=== PATIENT | female | born 1965 | race Caucasian/White ===

== ENCOUNTER 2024-02-17 06:34 | Day surgery (SDC) | payer MEDICAID ==
[~2024-02-17] VITALS: Ht 160 cm; Wt 75.3 kg
[2024-02-17] VITALS (11 sets, daily range): BP systolic 104–138; BP diastolic 51–87; PULSE 89–105; RESP 16; TEMP 98.6; O2SAT 97–100
[~2024-02-17 06:34] MED LIST: ASPI-611 PO; ERGO125013 PO; FURO-150 PO; OMEP20CA16 PO; SPIR25TA5 PO; VITA800012 PO
[2024-02-17] MEDS ORDERED: FURO-149 PO (07:05)
[2024-02-17] MEDS ORDERED: FURO-150 PO (07:05)
[2024-02-17] MEDS ORDERED: SPIR25TA5 PO ×2 (07:05)
[2024-02-17] MEDS ORDERED: COD1CAPS16 PO (07:05)
[2024-02-17] MEDS ORDERED: ACET325C6 PO (07:06)
[2024-02-17] MEDS: albumin (human) 25% 100 ML IV solution IV PRN (09:43)
== END 2024-02-17 11:30 | disposition home or self-care (01) ==
LOC: SSTAY O 06:34 → MERGE 08:30 → SSTAY O 11:30
PROVIDERS: ATTEND Internal Medicine Critical Care Medicine
DX: K70.31 Alcoholic cirrhosis of liver with ascites (principal); K76.6 Portal hypertension; Z88.1 Allergy status to other antibiotic agents
CPT/HCPCS: 49083; C1729; P9047; 96360; A6258

== ENCOUNTER 2024-02-29 06:29 | Day surgery (SDC) | payer MEDICAID ==
[~2024-02-29] VITALS: Ht 160 cm; Wt 70.3 kg
[2024-02-29] VITALS (8 sets, daily range): BP systolic 119–144; BP diastolic 65–85; PULSE 91–102; RESP 14–16; TEMP 98; O2SAT 96–98
[~2024-02-29 06:29] MED LIST changes: +ACET325C6 PO; -ASPI-611 PO; +COD1CAPS16 PO; +FURO-149 PO
[2024-02-29] MEDS ORDERED: MAGN250T11 PO (06:54)
[2024-02-29] MEDS: albumin 25% 100mL bottle x 1 IV PRN (07:39)
== END 2024-02-29 09:00 | disposition home or self-care (01) ==
LOC: SSTAY O 06:29
PROVIDERS: ATTEND Nurse Practitioner Family
DX: K70.31 Alcoholic cirrhosis of liver with ascites (principal); Z79.899 Other long term (current) drug therapy; Z88.1 Allergy status to other antibiotic agents
CPT/HCPCS: 49083; C1729; P9047; A6258

== ENCOUNTER 2024-03-10 07:01 | Day surgery (SDC) | payer MEDICAID ==
[2024-03-10] VITALS (8 sets, daily range): BP systolic 100–140; BP diastolic 56–74; PULSE 90–109; RESP 16; TEMP 98.2; O2SAT 96–97
[~2024-03-10] VITALS: Ht 160 cm; Wt 78.1 kg
[~2024-03-10 07:01] MED LIST changes: -ACET325C6 PO; -FURO-150 PO; +MAGN250T11 PO
[2024-03-10] MEDS: albumin 25% 100mL bottle x 1 IV PRN (08:03)
== END 2024-03-10 09:45 | disposition home or self-care (01) ==
LOC: SSTAY O 07:01
PROVIDERS: ATTEND Nurse Practitioner Family
DX: K70.31 Alcoholic cirrhosis of liver with ascites (principal); Z79.899 Other long term (current) drug therapy; Z88.1 Allergy status to other antibiotic agents
CPT/HCPCS: 49083; C1729; P9047; A6258

== ENCOUNTER 2024-03-17 08:18 | Day surgery (SDC) | payer MEDICAID ==
[2024-03-17] VITALS (11 sets, daily range): BP systolic 95–151; BP diastolic 58–97; PULSE 91–108; RESP 12–16; TEMP 99.3; O2SAT 97–100
[~2024-03-17] VITALS: Ht 160 cm; Wt 76.5 kg
[2024-03-17] MEDS: albumin 25% 100mL bottle x 1 IV PRN (10:24)
== END 2024-03-17 12:30 | disposition home or self-care (01) ==
LOC: SSTAY O 08:18
PROVIDERS: ATTEND Radiology Vascular & Interventional Radiology
DX: K70.31 Alcoholic cirrhosis of liver with ascites (principal); Z88.1 Allergy status to other antibiotic agents
CPT/HCPCS: 49083; C1729; P9047; 96360; A6258; A6449

== ENCOUNTER 2024-03-24 08:15 | Day surgery (SDC) | payer MEDICAID ==
[2024-03-24] VITALS (8 sets, daily range): BP systolic 119–157; BP diastolic 62–99; PULSE 88–99; RESP 13–15; TEMP 98; O2SAT 95–100
[~2024-03-24] VITALS: Ht 160 cm; Wt 80.9 kg
[~2024-03-24 08:15] MED LIST changes: -ERGO125013 PO
[2024-03-24] MEDS: albumin 25% 100mL bottle x 1 IV PRN (09:39)
== END 2024-03-24 12:05 | disposition home or self-care (01) ==
LOC: SSTAY O 08:15
PROVIDERS: ATTEND Radiology Diagnostic Radiology
DX: K70.31 Alcoholic cirrhosis of liver with ascites (principal); Z88.1 Allergy status to other antibiotic agents
CPT/HCPCS: 49083; C1729; P9047; A6258; A6449

== ENCOUNTER 2024-04-15 07:22 | Day surgery (SDC) | payer MEDICAID ==
[2024-04-08 14:46] LABS: EOSINOPHILS % (AUTO) 0.6 % (0-6); LYMPHOCYTES # (AUTO) 0.3 X10'3 (1.1-4.8); MONOCYTES # (AUTO) 0.4 X10'3 (0-0.9); NEUTROPHILS % (AUTO) 75.3 % (42-75)
[2024-04-08 14:48] LABS: BASOPHILS % (AUTO) 0.5 % (0-1); LYMPHOCYTES % (AUTO) 10.2 % (21-51); MEAN CORPUSCULAR HEMOGLOBIN 31.5 PG (27.0-31.0); MEAN CORPUSCULAR VOLUME 95.5 FL (78-98); MEAN PLATELET VOLUME 8.3 FL (7.4-10.4); MONOCYTES % (AUTO) 13.4 % (2-12); PRE OP HEMOGLOBIN 11.6 g/dL (12.0-16.0); RED BLOOD COUNT 3.67 X10'6 (4.20-5.60); RED CELL DISTRIBUTION WIDTH 16.5 % (11.5-14.5)
[2024-04-08 14:58] LABS: ALBUMIN 3.8 G/DL (3.4-5.0); ALBUMIN/GLOBULIN RATIO 1.3 (1.1-1.5); ALKALINE PHOSPHATASE 122 IU/L (46-116); BLOOD UREA NITROGEN 16 MG/DL (7-18); BUN/CREATININE RATIO 19.5 (10.0-20.0); CALCIUM 8.8 MG/DL (8.5-10.1); CHLORIDE 102 MMOL/L (99-107); CREATININE 0.82 MG/DL (0.40-0.90); PRE OP ALT 34 U/L (30-65); PRE OP ANION GAP 6 (8-16); PRE OP AST 36 U/L (10-37); PRE OP BILIRUB, TOTAL 1.2 MG/DL (0.0-1.0); PRE OP GLUCOSE 101 MG/DL (70-104); PRE OP POTASSIUM 4.2 MMOL/L (3.4-5.1); PRE OP SODIUM 138 MMOL/L (135-145); TOTAL CARBON DIOXIDE 29.6 MMOL/L (24-32); TOTAL PROTEIN 6.8 G/DL (6.4-8.2); eGFR 72 ML/MIN
[2024-04-08 15:21] LABS: PRE OP PLATELET COUNT 66 X10'3 (140-440); PRE OP WHITE BLOOD COUNT 2.7 10'3 (4.8-10.8)
[2024-04-08 15:34] LABS: ANISOCYTOSIS 1+; PLATELET ESTIMATE DECREASED; TOTAL CELLS COUNTED 100
[~2024-04-15] VITALS: Ht 160 cm; Wt 70.1 kg
[~2024-04-15 07:22] MED LIST changes: +CHOL10008 PO; +cefazolin 2gm/D5W 100mL 100 ML IV ONE
[2024-04-15 08:00] VITALS: BP 143/52; PULSE 84; RESP 16; TEMP 98.4; O2SAT 96
[2024-04-15] MEDS ORDERED: LIDOcaine 2% (20mg/ml) 5ml vial ONE (09:12)
[2024-04-15] MEDS ORDERED: BUPIVAcaine/PF 2.5mg/ml (0.25%) 10ml vial ONE (09:12)
[2024-04-15] MEDS: famotidine 20mg tablet PO ONE (09:20)
[2024-04-15] MEDS: ringers solution, lacted 1,000 ML IV SCH (09:20)
[2024-04-15] MEDS ORDERED: morphine 4 MG/ML inj SYRINge IV PRN (09:20)
[2024-04-15] MEDS ORDERED: enalaprilat dihydrate 2.5mg/2ml vial IV PRN (09:20)
[2024-04-15] MEDS ORDERED: ringers solution, lacted 1,000 ML IV SCH (09:20)
[2024-04-15] MEDS ORDERED: ondansetron/PF 4mg/2ml inj IV PRN (09:20)
[2024-04-15] MEDS ORDERED: morphine 2 MG/ML inj. syringe IV PRN (09:20)
[2024-04-15] MEDS ORDERED: ePHEDrine 50MG/ML INJ. ONE (09:29)
[2024-04-15] MEDS ORDERED: midazolam 1 mg/ML 2ml injection ONE (09:29)
[2024-04-15] MEDS ORDERED: fentaNYL/PF 50MCG/1 ML 2ML syringe ONE (09:30)
[2024-04-15] MEDS: LIDOcaine 2% (20mg/ml) 5ml vial SQ ONE (09:50)
[2024-04-15 09:52] VITALS: BP 122/74; PULSE 85; RESP 16; O2SAT 97
[2024-04-15 10:00] VITALS: BP 112/64; PULSE 82; RESP 11; O2SAT 96
[2024-04-15 10:10] VITALS: BP 110/66; PULSE 80; RESP 10; O2SAT 94
[2024-04-15 10:20] VITALS: BP 110/72; PULSE 88; RESP 12; O2SAT 99
[2024-04-15 10:30] VITALS: BP 122/70; PULSE 82; RESP 14; O2SAT 98
== END 2024-04-15 10:32 | disposition home or self-care (01) ==
LOC: PAS 07:22
PROVIDERS: ATTEND Orthopaedic Surgery Hand Surgery
DX: G56.01 Carpal tunnel syndrome, right upper limb (principal); I45.10 Unspecified right bundle-branch block; R94.31 Abnormal electrocardiogram [ECG] [EKG]; I10 Essential (primary) hypertension; J44.9 Chronic obstructive pulmonary disease, unspecified; K21.9 Gastro-esophageal reflux disease without esophagitis; Z87.891 Personal history of nicotine dependence; Z79.899 Other long term (current) drug therapy; Z98.890 Other specified postprocedural states; Z88.1 Allergy status to other antibiotic agents
CPT/HCPCS: 64721; 80053; 82948; 85025; 93005; J0690; J2250; J3010; J3490; J7030; J7120; Z7506; Z7512; 85007; A4215; A6449

== ENCOUNTER 2024-05-02 08:53 | Emergency (ER) | payer MEDICAID ==
[~2024-05-02] VITALS: Ht 160 cm; Wt 71.4 kg
[~2024-05-02 08:53] MED LIST changes: -cefazolin 2gm/D5W 100mL 100 ML IV ONE
[2024-05-02] MEDS: CefTRIAXone 2gm/D5W 50ml BAG 50 ML IV ONE (10:08)
[2024-05-02 10:47] LABS: EOSINOPHILS % (AUTO) 0.1 % (0-6); HEMOGLOBIN 12.8 g/dl (12.0-16.0); LYMPHOCYTES # (AUTO) 0.3 X10'3 (1.1-4.8); MEAN CORPUSCULAR VOLUME 94.6 FL (78-98); MONOCYTES # (AUTO) 0.7 X10'3 (0-0.9); NEUTROPHILS # (AUTO) 6.3 X10'3 (1.8-7.7); WHITE BLOOD COUNT 7.4 X10'3 (4.5-11.0)
[2024-05-02 10:50] LABS: BASOPHILS % (AUTO) 0.2 % (0-1); LYMPHOCYTES % (AUTO) 4.2 % (21-51); MEAN CORPUSCULAR HEMOGLOBIN 31.1 PG (27.0-31.0); MEAN CORPUSCULAR HGB CONC 32.9 g/dL (33.0-36.5); MEAN PLATELET VOLUME 9.3 FL (7.4-10.4); NEUTROPHILS % (AUTO) 85.5 % (42-75); PLATELET COUNT 72 X10'3 (140-440); RED BLOOD COUNT 4.12 X10'6 (4.20-5.60)
[2024-05-02 11:02] LABS: ALANINE AMINOTRANSFERASE 39 U/L (12-78); ALBUMIN 3.2 G/DL (3.4-5.0); ALBUMIN/GLOBULIN RATIO 0.8 (1.1-1.5); ALKALINE PHOSPHATASE 179 IU/L (46-116); ANION GAP 8 (8-16); ASPARTATE AMINO TRANSFERASE 34 U/L (10-37); BILIRUBIN,TOTAL 1.7 MG/DL (0.1-1.0); BLOOD UREA NITROGEN 19 MG/DL (7-18); BUN/CREATININE RATIO 22.4 (10.0-20.0); CALCIUM 8.7 MG/DL (8.5-10.1); CHLORIDE 95 MMOL/L (99-107); CREATININE 0.85 MG/DL (0.40-0.90); GLUCOSE 141 MG/DL (70-104); MAGNESIUM 2.3 MG/DL (1.5-2.4); POTASSIUM 4.3 MMOL/L (3.5-5.1); SODIUM 126 MMOL/L (135-145); TOTAL CARBON DIOXIDE 23.5 MMOL/L (24-32); TOTAL PROTEIN 7.4 G/DL (6.4-8.2); eCRCL 61 ML/MIN; eGFR 69 ML/MIN
[2024-05-02 12:09] LABS: BILIRUBIN,URINE NEGATIVE (Neg); CLARITY,URINE CLEAR (Clear); GLUCOSE, URINE NEGATIVE (Neg); KETONES,URINE NEGATIVE (Neg); LEUKOCYTE ESTERASE ,URINE NEGATIVE (Neg); NITRITES, URINE NEGATIVE (Neg); OCCULT BLOOD,URINE NEGATIVE (Neg); PROTEIN,URINE NEGATIVE (Neg); UROBILINOGEN,URINE 0.2 E.U/dL (0.2-1.0)
[2024-05-02] MEDS ORDERED: CEPH-585 PO (12:12)
[2024-05-02] MEDS ORDERED: SULF1TAB49 PO (12:12)
[2024-05-02 12:19] LABS: COLOR,URINE YELLOW (Yellow); UA COLLECTION TYPE CLN CATCH MIDSTREAM
[2024-05-02 13:16] VITALS: BP 149/52; PULSE 108; RESP 16; TEMP 98.3; O2SAT 97
== END 2024-05-02 13:19 | disposition home or self-care (01) ==
LOC: ER 08:54
DX: L03.116 Cellulitis of left lower limb (principal); E78.00 Pure hypercholesterolemia, unspecified; I10 Essential (primary) hypertension; K21.9 Gastro-esophageal reflux disease without esophagitis; I45.10 Unspecified right bundle-branch block; Z91.041 Radiographic dye allergy status; Z88.1 Allergy status to other antibiotic agents; Z79.899 Other long term (current) drug therapy; Z90.721 Acquired absence of ovaries, unilateral; Z88.8 Allergy status to other drugs, medicaments and biological substances
CPT/HCPCS: 36415; 80053; 81003; 83605; 83735; 84145; 85025; 87040; 93005; 96365; 99284; J0696

== ENCOUNTER 2024-06-20 06:43 | Day surgery (SDC) | payer MEDICAID ==
[2024-06-14 12:14] LABS: BASOPHILS % (AUTO) 0.2 % (0-1); EOSINOPHILS % (AUTO) 0.4 % (0-6); HEMATOCRIT 36.1 % (35.0-45.0); HEMOGLOBIN 12.1 g/dl (12.0-16.0); LYMPHOCYTES # (AUTO) 0.3 X10'3 (1.1-4.8); LYMPHOCYTES % (AUTO) 9.6 % (21-51); MEAN CORPUSCULAR HEMOGLOBIN 32.2 PG (27.0-31.0); MEAN CORPUSCULAR HGB CONC 33.5 g/dL (33.0-36.5); MEAN CORPUSCULAR VOLUME 96.1 FL (78-98); MEAN PLATELET VOLUME 8.9 FL (7.4-10.4); MONOCYTES # (AUTO) 0.3 X10'3 (0-0.9); MONOCYTES % (AUTO) 11.5 % (2-12); NEUTROPHILS # (AUTO) 2.3 X10'3 (1.8-7.7); NEUTROPHILS % (AUTO) 78.3 % (42-75); PLATELET COUNT 68 X10'3 (140-440); RED BLOOD COUNT 3.75 X10'6 (4.20-5.60); RED CELL DISTRIBUTION WIDTH 17.1 % (11.5-14.5)
[2024-06-14 12:27] LABS: ALANINE AMINOTRANSFERASE 35 U/L (12-78); ALBUMIN 3.3 G/DL (3.4-5.0); ALBUMIN/GLOBULIN RATIO 0.9 (1.1-1.5); ALKALINE PHOSPHATASE 157 IU/L (46-116); ANION GAP 8 (8-16); ASPARTATE AMINO TRANSFERASE 37 U/L (10-37); BLOOD UREA NITROGEN 21 MG/DL (7-18); BUN/CREATININE RATIO 25.6 (10.0-20.0); CALCIUM 8.5 MG/DL (8.5-10.1); CHLORIDE 103 MMOL/L (99-107); CREATININE 0.82 MG/DL (0.40-0.90); GLUCOSE 90 MG/DL (70-104); POTASSIUM 4.2 MMOL/L (3.5-5.1); SODIUM 137 MMOL/L (135-145); TOTAL CARBON DIOXIDE 25.6 MMOL/L (24-32); TOTAL PROTEIN 7.1 G/DL (6.4-8.2); eGFR 72 ML/MIN
[2024-06-14 12:39] LABS: ANISOCYTOSIS 1+; PLATELET ESTIMATE DECREASED; TOTAL CELLS COUNTED 100
[~2024-06-20] VITALS: Ht 160 cm; Wt 77.6 kg
[2024-06-20] VITALS (7 sets, daily range): BP systolic 105–132; BP diastolic 62–88; PULSE 76–90; RESP 12–17; TEMP 99.2; O2SAT 90–97
[2024-06-20] MEDS: ceFAZolin 2gm in dextrose, iso 50 ML IV ONE (05:30)
[~2024-06-20 06:43] MED LIST changes: -CHOL10008 PO; -COD1CAPS16 PO; -MAGN250T11 PO; -VITA800012 PO; +VITAMIN A; +VITAMIN D 3
[2024-06-20] MEDS ORDERED: BUPIVAcaine/PF 2.5mg/ml (0.25%) 10ml vial ONE (06:50)
[2024-06-20] MEDS ORDERED: LIDOcaine 2% (20mg/ml) 5ml vial ONE (06:50)
[2024-06-20] MEDS: famotidine 20mg tablet PO ONE (07:10)
[2024-06-20] MEDS: ringers solution, lacted 1,000 ML IV SCH (07:11)
[2024-06-20] MEDS ORDERED: fentaNYL/PF 50MCG/1 ML 2ML syringe ONE (08:39)
[2024-06-20] MEDS ORDERED: propofol inj 20 ML IV ONE (08:40)
[2024-06-20] MEDS ORDERED: ondansetron/PF 4mg/2ml inj ONE (08:40)
[2024-06-20] MEDS ORDERED: LIDOcaine 1%/PF 5ML 10 MG/ML VIAL ONE (08:40)
[2024-06-20] MEDS ORDERED: sevoflurane 250ml liquid IH ONE (08:40)
[2024-06-20] MEDS ORDERED: dexamethasone sod phosphate 4mg/ml inj. ONE (08:41)
== END 2024-06-20 10:04 | disposition home or self-care (01) ==
LOC: PAS 06:43
PROVIDERS: ATTEND Orthopaedic Surgery Hand Surgery
DX: G56.02 Carpal tunnel syndrome, left upper limb (principal); I10 Essential (primary) hypertension; Z86.14 Personal history of Methicillin resistant Staphylococcus aureus infection; E78.5 Hyperlipidemia, unspecified; J44.9 Chronic obstructive pulmonary disease, unspecified; Z88.8 Allergy status to other drugs, medicaments and biological substances; Z79.899 Other long term (current) drug therapy; Z98.890 Other specified postprocedural states; Z87.891 Personal history of nicotine dependence
CPT/HCPCS: 29848; 36415; 80053; 82948; 85025; J0690; J1100; J2003; J2405; J2704; J3010; J3490; J7030; J7120; Z7506; Z7512; 85007; A4215; A6449; A7000